=== PATIENT | male | born 1980 | race Hispanic/Latino ===

== ENCOUNTER 2021-03-02 22:53 | Emergency (ER) | payer OTHER, SELFPAY ==
[2021-03-02 22:57] VITALS: BP 163/91; PULSE 80; RESP 16; TEMP 36.2; O2SAT 97
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
[2021-03-03] MEDS: KETOROLAC (*BKC) 60 MG/2 ML VIAL IM (00:56)
== END 2021-03-03 02:39 | disposition home or self-care (01) ==
PROVIDERS: Emergency Provider Nurse Practitioner; PCP Internal Medicine Infectious Disease
DX: S13.4XXA Sprain of ligaments of cervical spine, initial encounter (principal); V49.40XA Driver injured in collision with unspecified motor vehicles in traffic accident, initial encounter
CPT/HCPCS: 96372; 99283; J1885